=== PATIENT | female | born 1980 | race Caucasian/White ===

== ENCOUNTER → 2018-09-05 | Emergency (ER) | payer MEDICAID, OTHER ==
[~2018-09-05] VITALS: Ht 167.6 cm; Wt 69.0 kg
[~2018-09-05] MED LIST: DIPH25CA83 PO; PRED10TA23 PO
[2018-09-05 08:40] VITALS: BP 115/80
== END | disposition home or self-care (01) ==
LOC: ER 08:34
DX: L23.7 Allergic contact dermatitis due to plants, except food (principal); Z79.899 Other long term (current) drug therapy
CPT/HCPCS: 99283